=== PATIENT | male | born 1950 | race Hispanic/Latino ===

== ENCOUNTER 2023-09-06 05:43 | Day surgery (SDC) | payer OTHER ==
[~2023-09-06] VITALS: Ht 165.1 cm; Wt 86.2 kg
[2023-09-06] VITALS (12 sets, daily range): BP systolic 116–145; BP diastolic 56–67; PULSE 51–64; RESP 15–17
[~2023-09-06 05:43] MED LIST: ATOR20TA65 PO; FURO20TA4 PO; PANT40TA54 PO; SACU1TAB PO
[2023-09-06] MEDS ORDERED: 0.9%NACL 1000ML 1,000 ML IV ONE (06:19)
[2023-09-06] MEDS ORDERED: PROPOFOL 10 MG/ML 20ML VIAL IV ONE ×2 (07:29→07:56)
[2023-09-06] MEDS ORDERED: LIDOCAINE HCL 400MG/20ML VIAL ONE (07:29)
[2023-09-06] MEDS ORDERED: LEVOFLOXACIN 500 MG/D5W 100 ML 100 ML ONE (07:32)
== END 2023-09-06 09:20 | disposition home or self-care (01) ==
LOC: ENDO 05:43 → DAH 05:44 → ENDO 09:20
PROVIDERS: ATTEND Internal Medicine Gastroenterology
DX: R93.3 Abnormal findings on diagnostic imaging of other parts of digestive tract (principal); K86.2 Cyst of pancreas; E78.5 Hyperlipidemia, unspecified; I25.2 Old myocardial infarction; I11.9 Hypertensive heart disease without heart failure; F17.200 Nicotine dependence, unspecified, uncomplicated; Z86.73 Personal history of transient ischemic attack (TIA), and cerebral infarction without residual deficits; Z95.5 Presence of coronary angioplasty implant and graft; Z86.010 Personal history of colon polyps; Z98.890 Other specified postprocedural states
CPT/HCPCS: 43238; J3490; J1956; J7030; J2704; A4620; A4215 ×3; A4223; A4222; A4221; A4663; A4606

== ENCOUNTER 2023-11-29 10:42 | Day surgery (SDC) | payer OTHER ==
[2023-11-29] VITALS (18 sets, daily range): BP systolic 116–151; BP diastolic 50–77; PULSE 57–80; RESP 15–18; TEMP 97.6–98.4
[~2023-11-29] VITALS: Ht 165.1 cm; Wt 86.2 kg
[~2023-11-29 10:42] MED LIST changes: +0.9%NACL 1000ML 1,000 ML IV ONE; +IOHEXOL-350 50ML VIAL IV ONE
[2023-11-29] MEDS ORDERED: ASPI-1197 PO (12:57)
[2023-11-29] MEDS ORDERED: proPOFol 10 MG/ML 20ML VIAL IV ONE (13:29)
[2023-11-29] MEDS ORDERED: FENTanyl CITRate PF 50 MCG/1 ML 2ML VIAL ONE (13:30)
[2023-11-29] MEDS ORDERED: SUCCINYLCHOLINE CHLORIDE 20 MG/ML 10 ML VIAL ONE (13:30)
[2023-11-29] MEDS: INDOMETHACIN 100 MG SUPP.RECT RC ONE (13:48)
[2023-11-29] MEDS: ondanSETRON 4MG INJ ONE (15:12)
[2023-11-29] MEDS: MEPERIDINE-PF 25 MG/ML SYG ONE (15:13)
== END 2023-11-29 16:05 | disposition home or self-care (01) ==
LOC: DAH 10:42 → ENDO 10:42
PROVIDERS: ATTEND Internal Medicine Gastroenterology
DX: R93.3 Abnormal findings on diagnostic imaging of other parts of digestive tract (principal); K86.89 Other specified diseases of pancreas; K86.2 Cyst of pancreas; E78.5 Hyperlipidemia, unspecified; I10 Essential (primary) hypertension; I25.10 Atherosclerotic heart disease of native coronary artery without angina pectoris; Z95.0 Presence of cardiac pacemaker; Z86.73 Personal history of transient ischemic attack (TIA), and cerebral infarction without residual deficits; Z95.1 Presence of aortocoronary bypass graft; Z95.5 Presence of coronary angioplasty implant and graft; Z79.82 Long term (current) use of aspirin; Z79.899 Other long term (current) drug therapy
CPT/HCPCS: 43261; 43274; 74329; 74330; 88112; 88305; 88307; A4606; C1769; J0330; J2175; J2405; J2704; J3010; J7030; Q9967; A4215; A4221; A4222; A4223; A4620; A4649; A4657; A4663; A7002; C1875; J3490